=== PATIENT | male | born 1940 ===

== ENCOUNTER 2018-01-26 07:43 | Day surgery (SDC) | payer MEDICARE ==
[2018-01-21 10:18] VITALS: BMI 30.3
[2018-01-26 08:10] LABS: BASO # 0.04 K/mm3 (0.0-2.0); BASO % 0.4 % (0.0-3.0); EOS # 0.4 (0.0-0.7); EOS % 4.1 % (1.5-5.0); GRAN # 5.08 (1.4-6.5); GRAN % 55.4 % (50.0-68.0); HEMOGLOBIN 12.5 g/dL (14.0-18.0); LYMPH # 2.6 (1.2-3.4); LYMPH % 28.6 % (22.0-35.0); MEAN CELL VOLUME 90.7 fl (80.0-105.0); MEAN CORPUSCULAR HEMOGLOBIN 30.5 pg (25.0-35.0); MEAN CORPUSCULAR HGB CONC 33.6 g/dl (31.0-37.0); MONO # 1.1 (0.1-0.6); MONO % 11.5 % (1.0-6.0); RBC 4.1 10^6/uL (3.5-6.1); RED CELL DISTRIBUTION WIDTH 14.2 % (11.5-14.5); WHITE BLOOD COUNT 9.2 10^3/ul (4.5-11.0)
[2018-01-26 08:33] LABS: PROTHROMBIN TIME 11.7 SECONDS (9.4-12.5)
[2018-01-26 08:34] LABS: INR 1.02 (0.93-1.08)
[2018-01-26 08:35] LABS: BLOOD UREA NITROGEN 20 mg/dL (7-21); CALCIUM 9.3 mg/dL (8.4-10.5); GFR AFRICAN-AMERICAN > 60; GFR NON-AFRICAN AMERICAN > 60; HDL CHOLESTEROL 38 mg/dL (29-60)
[2018-01-26 08:45] LABS: LDL CHOLESTEROL 42 mg/dL (0-129)
[2018-01-26] MEDS ORDERED: Lidocaine 2% Inj (20ml) ONE (10:28)
[2018-01-26] MEDS ORDERED: Iodixanol 320 MG/ML 200 ML BOTTLE IV ONE (10:29)
[2018-01-26] MEDS ORDERED: Midazolam 2 MG/2 ML VIAL ONE ×2 (10:36→10:52)
[2018-01-26] MEDS ORDERED: Iodixanol 320 MG/ML 100 ML BOTTLE IV ONE (11:02)
--- NOTE | 2018-01-26 11:05 | CARD ---
APPROVED REPORT Date of service: 01/26/2018 EKG Measurement Heart [id number] FL [id number] <Conclusion> Normal sinus rhythm Possible Left atrial enlargement Probably Incomplete right bundle branch block Borderline ECG
[2018-01-26] MEDS ORDERED: Sodium Chloride 0.9% 1,000 ML IV SCH (11:45)
--- NOTE | 2018-01-26 12:51 | CARD ---
APPROVED REPORT Date of service: 01/26/2018 EKG Measurement Heart [id number] <Conclusion> Sinus bradycardia Possible Left atrial enlargement RSR' or QR pattern in V1 suggests right ventricular conduction Delay. High Voltage-LVH. Left [place].
[2018-01-26] MEDS: Insulin Reg-MEDIUM-Coverage SC SCH ×2 (17:18→22:06)
--- NOTE | 2018-01-26 18:00 | CARDCATH ---
PROCEDURE DATE: 01/26/2018 CARDIAC CATHETERIZATION AND PTCA HISTORY: The patient is a 77-year-old male who presents with unstable angina. The patient underwent a stress test that showed new ischemic changes in the lateral wall. The patient's past medical history includes hypertension, diabetes mellitus and hypercholesterolemia. He is status post triple-vessel bypass surgery at [facility] several years ago. He suffers from diabetes mellitus. Because of this, cardiac catheterization was recommended. PROCEDURE: Left heart catheterization with coronary arteriography, left ventriculogram, supra-aortic valvular injection, as well as percutaneous transluminal coronary angioplasty and stent of the circumflex artery. The right femoral artery was cannulated with a 6-Australian sheath, which was then exchanged to a long 6-Australian sheath due to the marked tortuosity of his iliac and aorta. There were no complications. I performed moderate sedation which included the presence of an independent trained observer that assisted in monitoring the patient's level of consciousness and physiologic status. After administration of Versed and fentanyl, my intra-service time was 45 minutes. The findings on catheterization revealed an occluded RCA in its midportion. The left main artery was unremarkable. The circumflex artery was diffusely diseased and markedly tortuous with a 99% stenosis in the mid to distal portion of the circumflex artery. The LAD was diffusely diseased with diffuse atherosclerosis. In the midportion, there is a 50%-60% stenosis noted. LV function was normal with an EF of 60%. The AKBAR to the LAD was found to be subtotally occluded. The saphenous vein graft to the RCA was patent and provided good flow to the distal RCA. However, the PDA was a small vessel and occluded in its midportion. The saphenous vein graft to the other vessels were noted to be occluded. The saphenous vein graft to the circumflex is noted to be occluded. Supra-aortic valvular injection revealed no AI and no other visualization bypass grafts. The patient was started on intravenous Angiomax on the fluoroscopic guide, the guiding catheter was placed in the ostium of the left main artery. Using a GuideLiner for better support, an ATW wire and a run-through wire was used to cross the critical lesion. A 2 balloon followed by 2.5 balloon was utilized to pre-dilate the lesion. A 2.5 x 12 mm drug-eluting stent was placed and deployed at 14 atmospheres of pressure. Repeat coronary arteriography after balloon removal revealed an excellent result with no residual stenosis and DEANGELO III flow. Angio-Seal was used to close the femoral artery site. The patient tolerated the procedure well. In summary, the procedure was successful PTCA and stent of a 99% circumflex lesion with a drug-eluting stent. Cardiac catheterization reveals normal LV function. Triple-vessel CAD. Patent SVG to the RCA small PDA which was occluded in its midportion. Occluded saphenous vein graft to the circumflex artery and a subtotally occluded AKBAR to the LAD. Given these findings, the patient's treatment will need to remain on aspirin indefinitely and Plavix for at least a year and undergo a strict cardiac risk reduction program. We will consider angioplasty of the LAD depending on his clinical followup as well as his symptoms after discharge. Leroy Hdez MD
--- NOTE | 2018-01-26 20:47 | HP ---
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 Leroy Hdez. He is status post cardiac cath and stent placement. He is a 77-year-old [place] man who speaks Wol[place] very well. 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 He is comfortable status post cardiac cath and stent placement. He is comfortable. No pain. He understands the situation. He has 98.1 temp, 90 pulse, 18 respiratory rate, 96% O2 sat with a 148/72 blood pressure. He did have an outpatient stress test that was abnormal, therefore he went for a cardiac cath and stent placement. He has a past medical history of myocardial infarction, CAD, high cholesterol, hypertension, panic attacks, anxiety, depression. He had atrial fibrillation, which was resolved. He had myocardial infarction x2. He is a diabetic. He had CABG with three vessels. He had bilateral cataract surgery, cardiac cath. He is an ex-smoker. No alcohol. No drugs. He has had blood transfusions in the past. He has cardiovascular disease with his family. He is alert and oriented x3. No backaches or paralysis. No urinary problems. No GI problems at this time. He is appropriate, cooperative, little anxious. At this time, he is doing much better. He does have a history of depression, anxiety, but none now. Emotionally, he is very good at this time. He had a cardiac cath with stent placement. REVIEW OF SYSTEMS: No acute vision or hearing changes. No sore throat. No neck pain. No chest pain. No palpitations. No shortness of breath or cough. No abdominal pain. No nausea, vomiting, constipation or diarrhea. Extremities: He can move all 4 extremities. No pain with them. Skin: He has no breakdown that he knows of or rashes. He is calm at this time. He does get anxious from time to time. PHYSICAL EXAMINATION: VITAL SIGNS: I went over his vital signs already. HEENT: His head is atraumatic, normocephalic. Extraocular muscles are intact. Throat is moist. NECK: Supple. HEART: Regular rate. LUNGS: Decreased breath sounds, but clear. ABDOMEN: Soft, nontender. Positive bowel sounds. EXTREMITIES: Have no edema. SKIN: Difficult to assess all of his skin. He has to lie flat. From what I can tell, no rashes or ulcers apparently. LYMPHATICS: Thyroid midline. No palpable appreciable lymphadenopathy. PSYCHIATRIC: He is comfortable at this time, in good spirits. He understands he has to lie flat for 6 hours. He is a diabetic. I will put him on insulin coverage. I did stop the metformin due to the fact that we cannot do metformin with dye. He will be on IV fluids, Plavix, Lipitor, insulin coverage and an Ecotrin as per Dr. Leroy Hdez. LABORATORY DATA: He has a 140 sodium, potassium 4.1, BUN 20, creatinine 1.1, GFR is greater than 60, sugar is 128, calcium 9.3, triglyceride is 114, cholesterol 109, LDL is 42, HDL is 38. INR is 1.02. White count is 9.2, hemoglobin 12.5, hematocrit 37.2, platelets of 363. IMPRESSION: Hopefully, he will continue to do well. We will check his labs tomorrow and to lie flat for 6 hours. He had positive stress test on the outpatient. He has coronary artery disease with a stent placed on catheterization. We will watch him overnight. Héctor Matthew DO
[2018-01-27 00:38] VITALS: RESP 18
[2018-01-27 06:17] VITALS: BP 124/75; TEMP 98.2; O2SAT 96
[2018-01-27 07:01] LABS: BASO # 0.02 K/mm3 (0.0-2.0); BASO % 0.2 % (0.0-3.0); EOS # 0.5 (0.0-0.7); EOS % 3.5 % (1.5-5.0); GRAN # 10.62 (1.4-6.5); GRAN % 83.6 % (50.0-68.0); HEMOGLOBIN 12.4 g/dL (14.0-18.0); LYMPH # 0.7 (1.2-3.4); LYMPH % 5.6 % (22.0-35.0); MEAN CELL VOLUME 90.7 fl (80.0-105.0); MEAN CORPUSCULAR HEMOGLOBIN 30.5 pg (25.0-35.0); MEAN CORPUSCULAR HGB CONC 33.6 g/dl (31.0-37.0); MEAN PLATELET VOLUME 9.2 fl (7.0-11.0); MONO # 0.9 (0.1-0.6); MONO % 7.1 % (1.0-6.0); RBC 4.07 10^6/uL (3.5-6.1); RED CELL DISTRIBUTION WIDTH 14.3 % (11.5-14.5); WHITE BLOOD COUNT 12.7 10^3/ul (4.5-11.0)
[2018-01-27 07:18] LABS: ALB/GLOB RATIO 1.4 (1.1-1.8); ALBUMIN 3.9 g/dL (3.0-4.8); ALT/SGPT 33 U/L (7-56); AST/SGOT 29 U/L (17-59); BLOOD UREA NITROGEN 15 mg/dL (7-21); CALCIUM 8.5 mg/dL (8.4-10.5); GFR AFRICAN-AMERICAN > 60; GFR NON-AFRICAN AMERICAN > 60
[2018-01-27] MEDS: Insulin Reg-MEDIUM-Coverage SC SCH ×2 (07:48→11:45)
[2018-01-27 11:22] VITALS: PULSE 83
--- NOTE | 2018-01-27 13:51 | PN ---
DATE: 01/27/2018 SUBJECTIVE: The patient is chest pain free. PHYSICAL EXAMINATION: VITAL SIGNS: Blood pressure 124/75, heart rate is in the 80s. NECK: Negative JVD. LUNGS: Without rales. HEART: S1, S2. EXTREMITIES: Without edema. LABORATORY DATA: Hemoglobin is 12.4. Chemistries, BUN and creatinine unremarkable. IMPRESSION: 1. Status post percutaneous transluminal coronary angioplasty and stent of a 99% circumflex artery. 2. Unstable angina. 3. Coronary artery disease. 4. Diabetes mellitus. 5. Hypertension. 6. History of coronary artery bypass surgery. 7. Anxiety. Given these findings, the patient's cardiac status is stable post angioplasty. I had an extensive discussion with the patient about the need for aspirin as well as Plavix. A cardiac risk reduction program has been outlined for the patient. The patient is for discharge today. He will follow with Dr. Murphy, his broth mixer in [place] for further care. Leroy Hdez MD
== END 2018-01-27 13:58 | disposition home or self-care (01) ==
LOC: CATH 07:43 → 2RSO 11:57 → CATH 01-27 13:58
PROVIDERS: ATTEND Internal Medicine Cardiovascular Disease
DX: I25.110 Atherosclerotic heart disease of native coronary artery with unstable angina pectoris (principal); E78.00 Pure hypercholesterolemia, unspecified; E11.9 Type 2 diabetes mellitus without complications; I10 Essential (primary) hypertension; I25.2 Old myocardial infarction; F41.9 Anxiety disorder, unspecified; Z95.1 Presence of aortocoronary bypass graft; Z87.891 Personal history of nicotine dependence
CPT/HCPCS: 36415; 80048; 80061; 82948; 85025; 85610; 85730; 86850; 86900; 93005; 93459; 99152; 99153; C1725 ×3; C1760; C1769 ×3; C1874; C1887 ×2; C1894 ×2; C9600; J0583; J1644; J2250; J3010; J7030; J7040; Q9966